=== PATIENT | female | born 1975 | race Caucasian/White ===

== ENCOUNTER → 2017-11-11 17:12 | Outpatient (CLI) | payer OTHER, SELFPAY ==
--- NOTE | 2017-11-11 17:15 | MRI_ITS ---
STUDY: MRI RIGHT ANKLE WITHOUT CONTRAST REASON FOR EXAM: Female, 42 years old. Ankle pain and instability. The patient provides a history of an injury 8 months prior. TECHNIQUE: Standardized fat and water weighted pulse sequences were obtained in all 3 orthogonal planes. COMPARISON: None. FINDINGS: Normal subcutis adipose space. Normal posterior tibialis tendon. Normal flexor digitorum longus tendon. Normal flexor hallucis longus tendon. Normal peroneus longus and brevis tendons. Normal tibialis anterior tendon. Normal extensor hallucis longus tendon. Normal extensor digitorum longus tendons. Normal Achilles tendon and teno-osseous insertion. Normal plantar fascia. There is a 4 mm plantar calcaneal spur (sagittal T1 series 11, image 10). Normal intrinsic muscles of the rearfoot. Normal distal tibiofibular syndesmotic ligamentous complex. There is an osseous cortical avulsion of the anterior inferior tip of the fibula (axial T1 series 3, 14; sagittal T1 series 11, image 5). This osseous avulsion measures approximately 3.5 mm in its maximal dimension. There is a complete rupture of the anterior talofibular ligament (ATFL), (axial series 4, image 14). Normal calcaneofibular ligament (CFL), (axial T2 series 4, image 16; coronal T2 fat sat series 10, image 15), and posterior talofibular ligament. Normal subtalar ligaments and sinus tarsi. Normal deltoid ligamentous complexes. Normal plantar calcaneonavicular (spring) ligament. There is full-thickness chondral loss of the hyaline cartilage of the lateral talar dome with subcortical bone marrow reabsorption and bone marrow edema (sagittal STIR series 12, image 9; coronal T2 fat sat series 10, image 16), but without an osteochondral talar dome defect. There is a joint effusion of the tibiotalar articulation with anterolateral capsular prolapse (sagittal STIR series 12, image 6). There is an os trigonum (sagittal STIR series 12, image 11; axial T2 series 4, image 14), with an intact synchondrosis. Normal subtalar articulations. There is a cortical erosion and subcortical bone marrow reabsorption of the critical angle of Gissane (sagittal STIR series 12, image 10). Normal talonavicular articulation. Normal calcaneocuboid articulation. Normal navicular-cuneiform articulations. MRI/Lower Ext Joint Only (Routine) IMPRESSION: 1. Small osseous cortical avulsion of the anterior inferior tip of the fibula. 2. Complete rupture of the anterior talofibular ligament (ATFL). 3. Full-thickness chondral loss of the hyaline cartilage of the lateral talar dome with subcortical bone marrow reabsorption and bone marrow edema. 4. Joint effusion of the tibiotalar articulation with anterolateral capsular prolapse. 5. Os trigonum with an intact synchondrosis. 6. Cortical erosion and subcortical bone marrow reabsorption of the critical angle of Gissane. 7. Small plantar calcaneal spur. Electronically Signed: Hero Carrillo DO at 12:01 EDT Tel , Service support ,
== END ==
PROVIDERS: Family Provider Family Medicine; PCP Family Medicine; Visit Provider Podiatrist
DX: S93.491D Sprain of other ligament of right ankle, subsequent encounter (principal); M25.371 Other instability, right ankle
CPT/HCPCS: 73721

== ENCOUNTER → 2017-12-20 13:12 | Outpatient (CLI) | payer OTHER, SELFPAY ==
--- NOTE | 2017-12-20 13:45 | SDCEKG_ITS ---
Test Reason : Blood Pressure : / mmHG Vent. Rate : 064 BPM Atrial Rate : 064 BPM P-R Int : 158 ms QRS Dur : 074 ms QT Int : 422 ms P-R-T Axes : 000 050 050 degrees QTc Int : 435 ms Normal sinus rhythm Normal ECG Confirmed by GIULIA GORDON, BETTE ([id number]), associate entertainment editor SACHI NAM ([id number]) on 12/24/2017 11:02:02 AM Referred By: Segun Zuluaga Confirmed By:BETTE PLATT MD
== END ==
PROVIDERS: Family Provider Family Medicine; PCP Family Medicine; Visit Provider Podiatrist Foot & Ankle Surgery
DX: Z01.818 Encounter for other preprocedural examination (principal)
CPT/HCPCS: 93005

== ENCOUNTER → 2017-12-22 06:21 | Outpatient (CLI) | payer OTHER, SELFPAY ==
[2017-12-22 07:43] LABS: Anion Gap 3 (5-15); BUN 16 mg/dL (7-18); BUN/Creat Ratio 20.2 RATIO (10-20); Calcium,Total 8.3 mg/dL (8.5-10.1); Chloride 106 mmol/L (98-107); Creatinine, Serum 0.79 mg/dL (0.55-1.02); EST Glomerular Filtration Rate 85 mL/min (>60); Est Glom Filt Rate - Afr Amer 103 mL/min (>60); Glucose 85 mg/dL (74-106); Sodium Level 139 mmol/L (136-145)
== END ==
PROVIDERS: Family Provider Family Medicine; PCP Family Medicine; Visit Provider Podiatrist Foot & Ankle Surgery
DX: Z01.818 Encounter for other preprocedural examination (principal)
CPT/HCPCS: 36415; 80048

== ENCOUNTER → 2018-04-21 11:39 | Outpatient (CLI) | payer OTHER, SELFPAY ==
[2018-04-26 11:37] LABS: HPV Reflexed? NOT INDICATED
== END ==
PROVIDERS: Family Provider Family Medicine; PCP Family Medicine; Visit Provider Obstetrics & Gynecology
DX: Z12.4 Encounter for screening for malignant neoplasm of cervix (principal)
CPT/HCPCS: 88175; G0145

== ENCOUNTER → 2018-04-25 15:31 | Outpatient (CLI) | payer OTHER, SELFPAY ==
--- NOTE | 2018-04-25 15:34 | BI_ITS ---
MAMMOGRAPHY - BILATERAL SCREENING REASON FOR EXAM: Female, 42 years old. Routine annual screening examination. PERTINENT HISTORY: Grandmother with breast cancer. TECHNIQUE: Digital bilateral breast [place] (3D mammographic acquisition) in the CC and MLO projections. 2-D mediolateral oblique (MLO) and craniocaudad (CC) views of both breasts were obtained. CAD: Full Field Digital Mammography with Computer Added Detection was performed. COMPARISON: Comparison is made with prior study dated January 08, 2017 and May 08, 2014. FINDINGS: Breast Composition: The breasts are heterogeneously dense, which may obscure small masses. There are no dominant masses or suspicious calcifications. Stable small benign-appearing bilateral axillary lymph nodes. No other significant abnormalities are identified. There has been no significant change since the prior study. BI/SCREENING MAMM (CAD), BILAT IMPRESSION: Stable bilateral screening mammogram. Yearly follow-up mammogram recommended. (A) ASSESSMENT CATEGORY: BIRADS Category 2: Benign. A letter regarding these results will be sent to the patient by the facility within 30 days. Approximately 10% of breast cancers are not detected by mammography. A normal mammogram should not delay biopsy of a clinically suspicious abnormality. [id number] Electronically Signed: Jr Salgado MD at 8:21 EDT Tel [phone], Service support ,
== END ==
PROVIDERS: Family Provider Family Medicine; PCP Family Medicine; Visit Provider Obstetrics & Gynecology
DX: Z12.31 Encounter for screening mammogram for malignant neoplasm of breast (principal)
CPT/HCPCS: 77063; 77067

== ENCOUNTER → 2022-07-09 | Outpatient (CLI) | payer OTHER, SELFPAY | END | disposition home or self-care (01) | LOC: LABSPEC 08:07 | PROVIDERS: PCP Family Medicine; Referring Provider Surgery; Visit Provider Surgery | DX: L05.01 Pilonidal cyst with abscess (principal) | CPT/HCPCS: 87070; 87075; 87077; 87205 ==

== ENCOUNTER 2022-07-28 06:41 | Day surgery (SDC) | payer OTHER, SELFPAY ==
[2022-07-28] MEDS: Lactated Ringers 1,000 ML 15 ML IV (06:55)
[2022-07-28 07:10] VITALS: BP 121/80; PULSE 69; RESP 16; TEMP 36.8; O2SAT 100; BMI 30.3
--- NOTE | 2022-07-28 07:10 | HP.PCM_ITS ---
[facility] - General General Date of Service: 07/28/22 Chief Complaint: Screening for intestinal cancer [facility] Narrative MAMIE MOTT, is a 47 F who presents for screening colonoscopy today. She has not had a previous one. She denies abdominal pain or bright red blood per rectum or melena. There is no personal or family history of colon cancer. She has not had a previous exam. [facility] Medical History Abscess Anxiety Hand, foot and mouth disease Heartburn History of drainage of abscess (~07/2022) History of IBS Migraine headache Non-smoker Home Medications B-complex with vitamin C 1 ea PO DAILY 12/04/16 [History Last Taken Unknown] cyanocobalamin (vitamin B-12) 500 mcg tablet (Vitamin B-12) 800 mcg PO DAILY 12/04/16 [History Last Taken Unknown] omega-3 fatty acids-fish oil 340 mg-1,000 mg capsule (Fish Oil) 2 ea PO DAILY 12/04/16 [History Last Taken Unknown] mupirocin 2 % topical ointment 1 applic topical .QDAILY #2 tubes 01/11/18 [Rx Last Taken Unknown] ascorbate calcium (vitamin C) 500 mg tablet 500 mg PO DAILY 06/15/22 [History Last Taken Unknown] ashwagandha root extract 300 mg capsule 300 mg PO DAILY 06/15/22 [History Last Taken Unknown] cholecalciferol (vitamin D3) 125 mcg (5,000 unit) capsule 125 mcg PO DAILY 06/15/22 [History Last Taken Unknown] magnesium oxide 400 mg PO DAILY 06/15/22 [History Last Taken Unknown] zinc gluconate 30 mg tablet 30 mg PO DAILY 06/15/22 [History Last Taken Unknown] Allergy/AdvReac Type Severity Reaction Status Date / Time No Known Allergies Allergy Verified 07/28/22 07:10 Family History Father Colon polyps Diabetes AAA (abdominal aortic aneurysm) Hypertension Mother Colon polyps Neuropathy Surgical History History of ankle surgery History of arthroscopy of left knee History of colonoscopy History of esophagogastroduodenoscopy (EGD) History of laparoscopic cholecystectomy History of surgical removal of ganglion cyst History of umbilical hernia repair Social History Smoking Status: Never smoker ROS Constitutional Constitutional: Reports systems reviewed and no addt'l complaints, except as documented Cardiovascular Cardiovascular: Denies chest pain Respiratory/Chest Respiratory/Chest: Denies shortness of breath at rest Gastrointestinal Gastrointestinal: Denies abdominal pain, change in bowel habits, hematochezia or melena Physical Exam Const alert, oriented x3 and no apparent distress General Appearance: cooperative and comfortable Eyes General Eye: normal appearance of both eyes Neck General: normal visual inspection Chest inspection of chest normal Resp Effort and Inspection: able to speak in complete sentences and symmetric chest movement Auscultation: clear to auscultation bilaterally Cardio regular rate and regular rhythm GI soft to palpation, non-tender and non-distended Extremity no calf tenderness Neuro oriented x3 Psych thought process normal Assessment & Plan Assessment/Plan (1) Encounter for screening for malignant neoplasm of colon: PLAN: 47-year-old female presents via open access for screening colonoscopy. She is aware of the technique, benefit, risk of alternatives. She has recently had a pilonidal abscess incised and drained and it is improving. We will proceed as noted. Domingo Antoine M.D., F.A.C.S.
[2022-07-28 07:25] LABS: Internal QC Validated? YES +Cl - CLEAR BKGD; Pregnancy, Urine Negative Negative
[2022-07-28] MEDS: Silver Nitrate (BKC) 1 EACH (07:40)
[2022-07-28 07:45] VITALS: BP 104/70; BP 121/80; PULSE 71; RESP 16; TEMP 36.6; O2SAT 100
--- NOTE | 2022-07-28 07:45 | COLBX_PTH ---
PATIENT: MAMIE MOTT LOC: EN U#:[id number] AGE/SX: 47/F ROOM: RE07/28/[address]: Dr. Domingo Antoine MD : 1975 BED: DIS: 07/28/2022 SPEC #: [id number] RECD: 07/28/22 10:45 STATUS: JUAN GONZALES #: [id number] KAYLEN: 07/28/22 07:[address]: Domingo Antoine DEPT: SURGICAL PATHOLOGY RECD BY: Deisy Michele ENTERED: 07/28/22 11:32 SP TYPE: COLON BX OTHR DR: Dr. Rashid Lopez MD Tissues: Cecum, NOS Procedures: Surgery Specimen Level IV HEADER OPERATION: Colonoscopy ? open access (MAC), biopsy PRE-OP DIAGNOSIS: Screening TISSUE SUBMITTED: Ileocecal valve biopsy MICROSCOPIC DIAGNOSIS Ileocecal valve, biopsy: No pathologic change. AM:paola 07/29/2022 MICROSCOPIC DESCRIPTION Slides are reviewed. GROSS DESCRIPTION Received in fixative is one container labeled with the patient's name and designated ileocecal valve biopsy. The specimen consists of two irregular fragments of light erwin soft tissue that in aggregate measure 0.4 x 0.4 x 0.1 cm. The specimen is totally submitted in one cassette. / SJ:paola 07/28/2022 TC:5 CPT: 02462
--- NOTE | 2022-07-28 07:45 | OP.CCLET_ITS ---
07/28/2022 Gerson Lopez [address] [place] [address] Re : Colonoscopy procedure for Wilma Belldaveearlene Dear Dr. Lopez This procedure was performed on Thursday, July 28, 2022. My impressions and recommendations are as follows: Impressions : - Minimal nodular mucosa at the ileocecal valve. Small and focal. Biopsied. - The entire examined colon is normal. Recommendations : - Discharge patient to home. - Resume previous diet. - Continue present medications. - Repeat colonoscopy in 10 years for screening purposes. - Telephone my office for pathology results in 1 week. My findings are described in the full procedure note, which is enclosed. If I can be of further assistance, please feel free to contact me at Doctor phone number(s): Work: . Sincerely, Domingo Antoine MD 07/28/2022 7:45:06 AM This report has been signed electronically.
--- NOTE | 2022-07-28 07:45 | OP.COLON_ITS ---
Patient Name: Wilma Kim Procedure Date: 07/28/2022 7:15 AM Date of : 1975 Age: 47 Procedure: Colonoscopy Indications: Screening for colorectal malignant neoplasm Providers: Domingo Antoine MD Referring MD: Gerson Lopez Medicines: See the Anesthesia note for documentation of the administered medications Patient Profile: Last Colonoscopy: none. The patient's first colonoscopy is today. Complications: No immediate complications. Procedure: Pre-Anesthesia Assessment: - Prior to the procedure, a History and Physical was performed, and patient medications and allergies were reviewed. The patient's tolerance of previous anesthesia was also reviewed. The risks and benefits of the procedure and the sedation options and risks were discussed with the patient. All questions were answered, and informed consent was obtained. Prior Anticoagulants: The patient has taken no previous anticoagulant or antiplatelet agents. ASA Grade Assessment: II - A patient with mild systemic disease. After reviewing the risks and benefits, the patient was deemed in satisfactory condition to undergo the procedure. After I obtained informed consent, the scope was passed under direct vision. Throughout the procedure, the patient's blood pressure, pulse, and oxygen saturations were monitored continuously. The adult colonoscope was introduced through the anus and advanced to the cecum, identified by appendiceal orifice and ileocecal valve. The colonoscopy was performed without difficulty. The patient tolerated the procedure well. The quality of the bowel preparation was good. The ileocecal valve and the appendiceal orifice were photographed. Scope In: 7:24:52 AM Scope Withdrawal Time 0 hours 9 minutes 55 seconds Scope Out: 7:41:03 AM Total Procedure Duration Time 0 hours 16 minutes 11 seconds Findings: The perianal and digital rectal examinations were normal. An area of nodular mucosa was found at the ileocecal valve. Biopsies were taken with a cold forceps for histology. The entire examined colon appeared normal. Impression: - Minimal nodular mucosa at the ileocecal valve. Small and focal. Biopsied. - The entire examined colon is normal. Recommendation: - Discharge patient to home. - Resume previous diet. - Continue present medications. - Repeat colonoscopy in 10 years for screening purposes. - Telephone my office for pathology results in 1 week. Procedure Code(s): --- Professional --- 10318, Colonoscopy, flexible; with biopsy, single or multiple Diagnosis Code(s): --- Professional --- Z12.11, Encounter for screening for malignant neoplasm of colon K63.89, Other specified diseases of intestine CPT copyright 2017 [employer]. All rights reserved. The codes documented in this report are preliminary and upon neurosurgical physician assistant review may be revised to meet current compliance requirements. Domingo Antoine MD 07/28/2022 7:45:06 AM This report has been signed electronically. Number of Addenda: 0 Note Initiated On: 07/28/2022 7:15 AM
[2022-07-28 07:50] VITALS: BP 104/67; BP 121/80; PULSE 65; RESP 16; O2SAT 99
[2022-07-28 07:55] VITALS: BP 118/76; BP 121/80; PULSE 67; RESP 16; O2SAT 100
[2022-07-28 08:00] VITALS: BP 111/81; BP 121/80; PULSE 62; RESP 16; TEMP 36.6; O2SAT 100
[2022-07-28 08:39] VITALS: BP 121/80
== END 2022-07-28 08:41 | disposition home or self-care (01) ==
LOC: EN 06:46 → AC 06:49
PROVIDERS: Anesthesiology; PCP Family Medicine; Referring Provider Family Medicine; Visit Provider Surgery
PROC: 0DJD8ZZ Inspection of Lower Intestinal Tract, Via Natural or Artificial Opening Endoscopic (ICD-10-PCS; CPT 45378; principal; 2022-07-28 07:40)
DX: Z12.11 Encounter for screening for malignant neoplasm of colon (principal); K63.89 Other specified diseases of intestine
CPT/HCPCS: 45380; 81025; 88305; J7120; J2405

== ENCOUNTER → 2023-12-09 | Outpatient (CLI) | payer BC, SELFPAY ==
[2023-12-09 16:14] LABS: Hematocrit 43.5 % (37-47); Hemoglobin 14.5 g/dL (12.0-15.0); Mean Corp Hgb Conc 33.3 g/dL (32-36); Mean Corpuscular Hgb 31.2 pg (27.0-32.0); Mean Corpuscular Volume 93.5 fL (81-99); Mean Platelet Vol. 10.4 fl (6.2-12.0); Platelet Count 232 K/mm3 (150-450); RBC Distribution Width CV 11.9 % (11.6-14.6); RBC Distribution Width SD 41.2 fl (35.1-43.9); Red Blood Count 4.65 M/mm3 (4.2-5.4); White Blood Count 4.3 K/mm3 (4.4-11.0)
[2023-12-09 16:32] LABS: Vitamin D,25 Hydroxy 48.8 ng/mL
[2023-12-09 17:42] LABS: ALB/GLOB Ratio 1.1 RATIO (0.9-2.4); AST(SGOT) 19 U/L (15-37); Alanine Aminotransfer ALT/SGPT 34 U/L (13-56); Albumin, Serum 3.9 g/dL (3.2-5.0); Alkaline Phosphatase 96 U/L (45-117); Anion Gap 9 (5-15); BUN 15 mg/dL (7-18); BUN/Creat Ratio 18.8 RATIO (10-20); CRP 5.66 mg/L (0.0-3.0); Calcium,Total 8.9 mg/dL (8.5-10.1); Chloride 107 mmol/L (98-107); Cholesterol 271 mg/dL (200); EST Glomerular Filtration Rate 82 mL/min (>60); Est Glom Filt Rate - Afr Amer 99 mL/min (>60); Free T3 2.9 pg/mL (2.18-3.98); Globulin 3.5 g/dL (2.2-4.2); Glucose 87 mg/dL (74-106); High Density Lipoprotein 62 mg/dL; Potassium 4.3 mmol/L (3.5-5.1); Protein, Total 7.4 g/dL (6.4-8.2); Sodium Level 139 mmol/L (136-145); T4 Free Direct 0.89 ng/dL (0.76-1.46); Thyroid Stim Hormone (TSH) 1.54 uIU/mL (0.358-3.74); Triglycerides 138 mg/dL; Very Low Density Lipoprotein 28 mg/dL (5-40)
[2023-12-11 10:09] LABS: HOMOCYSTEINE 10.1 umol/L (0.0-14.5)
[2023-12-11 12:09] LABS: Insulin Level 8.5 uIU/mL (2.6-24.9)
== END | disposition home or self-care (01) ==
LOC: MFPLAB 10:53
PROVIDERS: PCP Family Medicine; Visit Provider Family Medicine
DX: Z00.00 Encounter for general adult medical examination without abnormal findings (principal); Z13.1 Encounter for screening for diabetes mellitus; R53.83 Other fatigue; Z13.29 Encounter for screening for other suspected endocrine disorder; Z13.220 Encounter for screening for lipoid disorders; Z13.21 Encounter for screening for nutritional disorder
CPT/HCPCS: 36415; 80053; 80061; 82306; 83090; 83525; 84439; 84443; 84481; 85027; 86140

== ENCOUNTER 2023-12-17 05:56 | Day surgery (SDC) | payer BC, SELFPAY ==
--- NOTE | 2023-12-17 06:03 | HP.PCM_ITS ---
History and Physical Date of Admission: 12/17/23 Allergies No Known Allergies Allergy (Verified 12/08/23 15:35) Medications cholecalciferol (vitamin D3) 125 mcg (5,000 unit) capsule 125 mcg PO DAILY 06/15/22 [History Confirmed 12/08/23] magnesium glycinate 100 mg tablet 100 mg PO DAILY 09/21/23 [History Confirmed 12/08/23] ON LICENSE OF [facility] Medical History Anxiety Hand, foot and mouth disease Heartburn History of drainage of abscess (~07/2022) History of IBS History of pain when walking History of steroid therapy Migraine headache Non-smoker Pilonidal abscess of cleft Wears glasses Surgical History History of ankle surgery History of arthroscopy of left knee History of colonoscopy History of esophagogastroduodenoscopy (EGD) History of incision and drainage History of laparoscopic cholecystectomy History of surgical removal of ganglion cyst History of umbilical hernia repair Family History Father Colon polyps Diabetes AAA (abdominal aortic aneurysm) HypertensionMother Colon polyps Neuropathy Social History Smoking Status: Never smoker HPI HPI HPI: Patient is a 48 y/o F I am seeing for an update history and physical for an upcoming elective right possible bilateral inguinal hernia repair with mesh. Patient denies any recent hospitalization or illnesses. Patient denies denies any medication changes. She denies any compilations or side effects previously from anesthesia. Patient notes a previous history of umbilical hernia repair. Patient denies any cardiac or pulmonary concerns. She does not follow with a credit clerk. She is not currently on any blood thinners. Patient's previous history per Dr. Antoine: 48-year-old female. I have previously assisted her with a pilonidal abscess which had quite a delayed healing and required multiple office visits.She now presents with concerns regarding a possible hernia. The patient states that but tickly when she is standing that she is noted which she is suggesting some fatty fullness in the right medial groin area. She does not correlate this with any particular injury or accident. She likes running and is scheduled to do a running event in November. She is always able to get the area to reduce and actually can feel the area reduced when she lies supine. She has had a previous laparoscopic cholecystectomy. She has had a remote umbilical herniorrhaphy in childhood. No report of mesh in that location. She has been having some right lower quadrant discomfort which she always attributed to her right ovary. Upon self-examination she is wondering whether she has weakness on the left as well ROS General General: No weight change, appetite, fatigue, colon cancer, breast cancer or weakness HEENT HEENT: No difficulty swallowing, eye injury, eye surgery, swollen glands or hoarseness Endo Endocrine: No thyroid disease, diabetes mellitus, thyroid cancer, Hair loss, heat intolerance or cold intolerance Skin Skin: No rash or changing moles Breast Breast: No left breast lump, right breast lump, nipple discharge, breast pain, abnormal mammogram, abnormal US or breast enlargement Musc Musculoskeletal: No back problems, arthritis, rheumatoid arthritis, gout or joint pain Cardio Cardiovascular: No murmur, pacemaker, heart disease, atrial fibrillation, high blood pressure, heart attack, heart stent, palpitations, shortness of breat with exertion or chest pain Psych Psychiatric: No depression, anxiety or hearing voices Resp Respiratory: No shortness of breath, No sleep apnea, No cough, No COPD, No asthma, No emphysema and No wheezing Gastro Gastrointestinal: No abdominal pain, No nausea or vomiting, No diarrhea, No constipation, No blood in stool, No acid reflux, No hemorrhoids, No ulcers, No gallbladder problem and No black,tarry stools Rudy Hematologic: No blood thinners, No blood disorders, No bleeding, No anemia and No blood clots Neuro Neurologic: No system reviewed and no additional complaints, except as documented, No as per HPI, No abnormal gait, No abnormal hearing, No abnormal movements, No abnormal speech, No behavioral changes, No burning sensations, No confusion, No convulsions, No disequilibrium, No dizziness, No localized weakn ess, No frequent falls, No headache(s), No lack of coordination, No loss of vision, No memory loss, No numbness, No other visual disturbances, No radicular pain, No restless legs, No sensory deficit, No syncope, No tingling, No tremor(s), No weakness and No other Exam Const General: cooperative, healthy appearing, comfortable and no acute distress [facility] Head: normal to inspection Eyes General: appearance normal, both eyes and all related structures Neck Neck: normal visual inspection Neck mass: No Resp Effort & Inspection: normal respiratory effort Auscultation: clear to auscultation bilaterally Cardio Rate: regular rate Rhythm: regular rhythm GI Inspection: normal to inspection Palpation: soft and hernia (right groin; weakness of the left groin palpated as well) Auscultation: normal bowel sounds Musc Cervical Spine: normal cervical lordosis Skin General: no rashes or lesions noted Neuro General: no focal motor deficits and CN's II-XI intact bilaterally Extrem General: normal to inspection Psych Appearance: grossly normal Affect: normal affect Assessment and Plan Assessment and Plan (1) Inguinal hernia of right side without obstruction or gangrene: Status: Acute (2) Left groin pain: Status: Acute Plan Dr. Antoine will plan to perform a laparoscopic right inguinal possible left inguinal hernia repair with mesh. Procedure details, risks and benefits have been explained. Patient has had the opportunity to ask and have questions answered. Patient has a history of pilonidal abscesses/drainage. I have examined the pilonidal region which is currently completely closed. Patient verbally understands and agrees with the plan. I have examined the patient and the H&P has been reviewed. There are no clinical changes since date of exam. Domingo Antoine M.D., F.A.C.S.
--- NOTE | 2023-12-17 06:04 | DCINST_ITS ---
Discharge Instructions Procedure General Surgery Diet Discharge Diet: Light diet - advance as tolerated (if you have questions about your diet instructions, please talk to you doctor.) Activity Discharge Activity: May Not Drive (for 3-5 days or while taking narcotic pain medicine.) May shower in (days): 1 Lifting Restrictions: 10 pounds Dressing / Incision Call your doctor if your incision/area has: Continuous Slow Oozing, Sudden Increased Bleeding, Increased Pain/ Swelling, Increased Redness and Foul Smelling Discharge Call your doctor if you observe: Fever of 101 or Higher Suture Line Care: Avoid Pulling/Pushing and Avoid Pinching/Bending Additional Dressing/Incision Instructions:: Change or remove dressing in 4 days. Leave steri-strips in place for 1 week. Follow Up Care Please Follow Up With: Domingo Antoine MD When: Call [phone] to make an appointment to be seen in about 10 days. Test Results: Test results from this visit will be discussed in further detail at your follow- up appointment, if applicable. Discharge Plan Admission Attending Provider: Domingo Antoine Primary Care Provider: Rashid Lopez Instructions Print Language: Palestinian Discharge Orders/Prescriptions Prescriptions: No Action cholecalciferol (vitamin D3) 125 mcg (5,000 unit) capsule 125 mcg PO DAILY magnesium glycinate 100 mg tablet 100 mg PO DAILY Referrals / Follow Up: Rashid Lopez MD [Primary Care Provider] - Disposition Disposition (needs filled in before D/C Order can be placed): Home, Self Care
[2023-12-17 06:32] LABS: Internal QC Validated? YES +Cl - CLEAR BKGD; Pregnancy, Urine Negative Negative
[2023-12-17 06:33] VITALS: BP 123/78; PULSE 65; RESP 18; TEMP 36.4; O2SAT 100; BMI 34.0
[2023-12-17] MEDS: Lactated Ringers 1,000 ML 15 ML IV ×2 (06:49→09:27)
[2023-12-17] MEDS: Cefazolin 2 GM in 0.9% Normal Saline (100mL Bag) 100 ML IV (07:22)
[2023-12-17] MEDS: Bupivacaine Mpf 0.5% 30 ML VIAL (07:41)
--- NOTE | 2023-12-17 09:03 | PCM.OPRPT ---
Report of Operation Date of Procedure: 12/17/23 Pre-Operative Diagnosis: Indirect right inguinal hernia possible left inguinal hernia Post-Operative Diagnosis: Bilateral indirect inguinal hernias with moderately large cord lipoma on the right Surgery/Procedure Performed:: Laparoscopic bilateral inguinal herniorrhaphy Extra-large Bard 3D max mesh right Lot number [id number], reference [id number], expiry date 03/29/2027 Large Bard 3D max left mesh lot number [id number], reference [id number], expiry date 06/29/2028 Secure strap Lot [id number], expiry date 01/2025 Description of Surgical Findings:: Timeout informed consent was obtained. 48-year-old female was taken to the op room placed on the table underwent general tracheal ovation esthesia Ancef 2 g given intravenously the abdomen sterilely prepped and draped patient has a previous curvilinear incision in the inferior portion of the umbilicus the skin scar was elliptically excised sharp dissection carried down through subcu tissue and fascia was identified holding sutures of 0 Vicryl placed the fascia was elevated small incision was created became evident that there was a piece of mesh slipped just beneath the lower edge use that couple more 0 Vicryl sutures to elevate the posterior fascia directly made an opening directly was able to visualize and placed a trocar. No evidence of any trocar injuries the abdomen was insufflated with CO2 to a pressure of 10 mmHg pressure. Under direct visualization bilateral ilioinguinal nerve blocks were performed with 0.5% Marcaine. Throughout the procedure a total of 30 cc was used. 5 mm trocars were placed on the right and left lower quadrant. There was evidence of an indirect inguinal hernia on the right and smaller defect on the left. The peritoneum superior lateral to the internal ring on the right was incised carried medially the peritoneum was completely dissected free of marginal large cord lipoma on the right was identified this had to be dissected free and throughout that hemostasis attained with hemoclips and electrocautery. Because of dense adherence of the peritoneum to the right round ligament I put Hem-o-ar clips on the round ligament and transected it. This allowed for full exposure to the direct indirect and femoral area on the right. I then incised the peritoneum superior lateral to the internal ring on the left. It medially dissected the peritoneum completely free a much smaller defect was noted on the left indirect. The peritoneum could be to completely dissected free this time from the round ligament leaving the round ligament intact. The dissection from the right was visualized pubic tubercle identified. Extra-large Bard 3D max was placed on the right it was secured laterally superiorly and medially there was secure strap the edge of the mesh was secured to the pubic tubercle and nicely folded beneath the tubercle tubercle to keep the direct indirect and femoral areas nicely covered. I placed a large mesh on the left the to overlap slightly in the middle secured laterally superiorly and medially with secure strap and also secured it to the pubic tubercle. I felt that I had excellent coverage bilaterally. The cord lipoma on the right was placed back underneath the peritoneum and the peritoneum was approximated to itself using combination of secure strap and Hem-o-ar clips. Complete obliteration to the mesh was achieved. The abdomen is allowed to deflate of the CO2. The fascial defect was meticulously approximated with simple sutures of 0 Nurolon. Good closure was felt to have been achieved. Wound edges were approximated with interrupted a running subicular 4-0 Monocryl. Steri-Strips Telfa OpSite dressings applied. Sponge and instrument and needle counts were reported to the surgeon to be correct. Specimens none. Drains none. Blood loss 20 cc. The patient was taken to the recovery room in satisfied condition without apparent complication Domingo Antoine M.D., F.A.C.S. Surgeon: Domingo Antoine Type of Anesthesia: General and Local Anesthesiologist: Mellisa Garcia
[2023-12-17 09:19] VITALS: BP 111/77; BP 123/78; PULSE 68; RESP 16; TEMP 36.2; O2SAT 95
[2023-12-17 09:25] VITALS: BP 105/88; BP 123/78; PULSE 78; RESP 16; O2SAT 95
[2023-12-17 09:30] VITALS: BP 108/70; BP 123/78; PULSE 54; RESP 16; O2SAT 98
[2023-12-17 09:45] VITALS: BP 112/79; BP 123/78; PULSE 49; RESP 16; TEMP 36.1; O2SAT 97
[2023-12-17] MEDS: HYDROcodone Bitartrate/Apap 5/325 Tablet PO (10:19)
[2023-12-17 11:19] VITALS: BP 122/77; BP 123/78; PULSE 57; RESP 16; TEMP 36.3; O2SAT 99
== END 2023-12-17 11:21 | disposition home or self-care (01) ==
LOC: SDC 05:57 → AC 06:01
PROVIDERS: Anesthesiology; PCP Family Medicine; Referring Provider Family Medicine; Visit Provider Surgery
PROC: (CPT 49650; principal; 2023-12-17 07:10)
DX: K40.20 Bilateral inguinal hernia, without obstruction or gangrene, not specified as recurrent (principal); Z90.49 Acquired absence of other specified parts of digestive tract
CPT/HCPCS: 49505; 00830; 81025; J7120; C1781; J2405

== ENCOUNTER → 2024-06-20 | Outpatient (CLI) | payer BC, SELFPAY ==
[2024-06-20 06:54] LABS: Hematocrit 42.7 % (37-47); Hemoglobin 14.6 g/dL (12.0-15.0); Mean Corp Hgb Conc 34.2 g/dL (32-36); Mean Corpuscular Hgb 31.1 pg (27.0-32.0); Mean Platelet Vol. 9.5 fl (6.2-12.0); Platelet Count 271 K/mm3 (150-450); RBC Distribution Width CV 12.3 % (11.6-14.6); RBC Distribution Width SD 40.4 fl (35.1-43.9); Red Blood Count 4.69 M/mm3 (4.2-5.4); White Blood Count 6.7 K/mm3 (4.4-11.0)
[2024-06-20 08:07] LABS: ALB/GLOB Ratio 1.1 RATIO (0.9-2.4); AST(SGOT) 15 U/L (15-37); Alanine Aminotransfer ALT/SGPT 37 U/L (13-56); Albumin, Serum 3.7 g/dL (3.2-5.0); Alkaline Phosphatase 127 U/L (45-117); Anion Gap 7 (5-15); BUN 18 mg/dL (7-18); BUN/Creat Ratio 22.3 RATIO (10-20); Calcium,Total 8.9 mg/dL (8.5-10.1); Chloride 102 mmol/L (98-107); Cholesterol 245 mg/dL (200); Creatinine, Serum 0.81 mg/dL (0.55-1.02); EST Glomerular Filtration Rate 81 mL/min (>60); Est Glom Filt Rate - Afr Amer 98 mL/min (>60); Ferritin 51 ng/mL (8-252); Globulin 3.5 g/dL (2.2-4.2); Glucose 92 mg/dL (74-106); High Density Lipoprotein 60 mg/dL; Iron 125 ug/dL (50-170); Iron Binding Capacity,Total 381 ug/dL (250-450); Lipase 24 U/L (13-75); PERCENT IRON SATURATION 32.8 % (15.0-55.0); Potassium 4.5 mmol/L (3.5-5.1); Protein, Total 7.2 g/dL (6.4-8.2); Sodium Level 135 mmol/L (136-145); T4 Free Direct 0.82 ng/dL (0.76-1.46); Triglycerides 184 mg/dL; Very Low Density Lipoprotein 37 mg/dL (5-40)
[2024-06-20 08:37] LABS: Vitamin B12 536 pg/mL (211-911); Vitamin D,25 Hydroxy 20.8 ng/mL
[2024-06-20 09:02] LABS: Hemoglobin A1c 5.7 % (3.8-5.6)
[2024-06-21 05:08] LABS: Insulin Level 12.4 uIU/mL (2.6-24.9)
== END | disposition home or self-care (01) ==
LOC: LAB 06:36
PROVIDERS: PCP Family Medicine
DX: R63.5 Abnormal weight gain (principal); E78.5 Hyperlipidemia, unspecified; E61.1 Iron deficiency; E55.9 Vitamin D deficiency, unspecified; M25.9 Joint disorder, unspecified
CPT/HCPCS: 36415; 80053; 80061; 82306; 82607; 82728; 82746; 83036; 83525; 83540; 83550; 83690; 84439; 84443; 85027

== ENCOUNTER → 2024-10-23 | Outpatient (CLI) | payer BC, SELFPAY ==
--- NOTE | 2024-10-23 10:10 | CT_ITS ---
EXAM: CT Abdomen and Pelvis With Intravenous Contrast CLINICAL INDICATION: ABDOMINAL PAIN TECHNIQUE: Axial computed tomography images of the abdomen and pelvis with intravenous contrast. This CT exam was performed using one or more of the following dose reduction techniques: automated exposure control, adjustment of the mA and/or kV according to patient size, and/or use of iterative reconstruction technique. COMPARISON: No relevant prior studies available. FINDINGS: LUNG BASES: Unremarkable. No mass. No consolidation. ABDOMEN: LIVER: Fatty infiltration of the liver. GALLBLADDER AND BILE DUCTS: Unremarkable. No calcified stones. No ductal dilation. PANCREAS: Unremarkable. No mass. No ductal dilation. SPLEEN: Unremarkable. No splenomegaly. ADRENALS: Unremarkable. No mass. KIDNEYS AND URETERS: Unremarkable. No stones within either kidney. No hydronephrosis. STOMACH AND BOWEL: Fecal retention in the colon consistent with constipation. Colonic diverticulosis without acute diverticulitis. No obstruction. PELVIS: APPENDIX: No findings to suggest acute appendicitis. BLADDER: Unremarkable. No mass. REPRODUCTIVE: 2.7 cm hypodense left adnexal lesion, likely ovarian cysts. ABDOMEN and PELVIS: INTRAPERITONEAL SPACE: Unremarkable. No free air. No significant fluid collection. BONES/JOINTS: No acute fracture. No dislocation. SOFT TISSUES: Right inguinal hernia. VASCULATURE: Unremarkable. No abdominal aortic aneurysm. LYMPH NODES: Unremarkable. No enlarged lymph nodes. CT/Abdomen/Pelvis WITH Contrast IMPRESSION: 1. Fecal retention in the colon consistent with constipation. 2. No obstructive uropathy. 3. Right inguinal hernia. 4. Colonic diverticulosis without acute diverticulitis. Reading Location: [facility]
== END | disposition home or self-care (01) ==
LOC: CT 09:56
PROVIDERS: PCP Family Medicine; Referring Provider Physician Assistant; Visit Provider Physician Assistant
DX: R10.32 Left lower quadrant pain (principal); Z98.890 Other specified postprocedural states; Z87.19 Personal history of other diseases of the digestive system
CPT/HCPCS: 74177; Q9967